=== PATIENT | female | born 1985 | race Caucasian/White ===

== ENCOUNTER 2020-09-12 00:44 | Outpatient (CLI) | payer BC, OTHER, SELFPAY ==
[2020-09-12 17:37] LABS: SARS-CoV-2 RNA PCR Negative
== END 2020-09-12 00:45 | disposition home or self-care (01) ==
LOC: ANHCOVIDDT 00:44
PROVIDERS: PCP Emergency Medicine; Visit Provider Obstetrics & Gynecology
DX: Z01.812 Encounter for preprocedural laboratory examination (principal); Z20.828 Contact with and (suspected) exposure to other viral communicable diseases
CPT/HCPCS: 87635; C9803; U0003

== ENCOUNTER 2020-09-15 00:53 | Day surgery (SDC) | payer BC, OTHER, SELFPAY ==
[2020-09-02 11:34] VITALS: BMI 24.1
[2020-09-15] VITALS (8 sets, daily range): BP systolic 113–126; BP diastolic 61–88; PULSE 50–90; RESP 10–16; TEMP 36.4–36.8; O2SAT 100
[2020-09-15] MEDS: ACETAMINOPHEN 500 MG TABLET 1000 MG PO (09:18)
[2020-09-15] MEDS: KETOROLAC 15 MG/ML VIAL (*BKC) IV PUSH (09:34)
[2020-09-15] MEDS: LACTATED RINGERS 1,000 ML 30 ML IV CONT ×2 (09:34→11:28)
--- NOTE | 2020-09-15 10:10 | WPDHPUPDATE1 ---
History and Physical Update Update Date/Time: 09/15/20 10:10 History and Physical has been reviewed, including an updated exam of the patient. There are NO changes in the patient's condition. Risks, benefits, and alternatives have been discussed and questions answered. Patient agrees to proceed with procedure.
--- NOTE | 2020-09-15 10:25 | WPDANESEPPF ---
Anes - Initial Pre Proc Eval Procedure: Operation Date: 09/15/20 11:30 Proposed Procedures p Laparoscopic Bilateral Tubal Sterilization with Cautery - Halley Bob MD s Hysteroscopy with Donna Ablation - Halley Bob MD Date/Time: 09/15/20 10:25 Surgeon: Halley Bob MD Pre Op Diagnosis: sterilization, excessive and frequent menstruation Patient Data Age: 35 Gender: F Height: 5 ft 5 in Weight: 64.8 kg Last Vital Signs Temp 98.2 F 09/15/20 09:34 Pulse 70 09/15/20 09:34 Resp 16 09/15/20 09:34 BP 113/61 09/15/20 09:34 Pulse Ox 100 09/15/20 09:34 Allergies Allergy/AdvReac Type Severity Reaction Status Date / Time No Known Allergies Allergy Verified 09/15/20 09:12 Home Medications Medication Instructions Recorded Confirmed Type L.acid-L.casei-B.bif-B.homero-FOS 1 cap PO DAILY 09/02/20 09/15/20 History [Probiotic Blend] levothyroxine 50 mcg PO DAILY 09/02/20 09/15/20 History multivitamin 1 tablet PO DAILY 09/02/20 09/15/20 History Patient hx anesthesia problems: none Family hx anesthesia problems: none PMFSH Past Medical History Medical History (Updated 09/15/20 @ 08:40 by Rickey Izaguirre MD) Anemia Hypothyroid Migraine Social History Social History Smoking status: Never smoker Spiritual care concerns: No Anes - Eval Final PreProcedure Day of Procedure 09/15/20 10:25 Patient weight: normal Heart: regular rate and rhythm Lungs: clear to auscultation Airway: Mallampati scale class II Neurological: alert and oriented Last oral intake: >/= 8 hours ASA classification: II Emergent: no Anesthetic plan: proceed Anesthesia type and monitoring: general ETT and standard monitoring Informed Consent: The patient's anesthetic plan and its attendant risks and benefits were discussed with the patient/family/POA. Questions were solicited and answers provided to the satisfaction of the patient/family/POA.
--- NOTE | 2020-09-15 10:32 | SUR.PREOP ---
Up to bathroom.
--- NOTE | 2020-09-15 10:32 | PM.IMHP ---
H&P: HPI History of Present Illness Date/Time: 09/15/20 10:32 Chief complaint: sterilization, excessive and frequent menstruation Narrative: Amy Dalton is a 35 year old female who presents for preoperative care. She has severe menorrhagia and unwanted fertility. We have agreed to perform laparoscopic BTL and endometrial ablation. She has no other complaints. Review of Systems Constitutional: Constitutional: Reports no additional constitutional complaints, Denies fatigue, Denies headache(s), Denies lethargy and Denies weakness Eyes: Eyes: Reports no additional eye complaints, Denies blurry vision and Denies photophobia ENT: Reports as per HPI, Denies headache(s) and Denies neck pain Cardiovascular: Cardiovascular: Denies chest pain, Denies diaphoresis, Denies leg edema, Denies palpitations and Denies dyspnea Respiratory: Respiratory: Denies hemoptysis, Denies dyspnea and Denies wheezing Gastrointestinal: Gastrointestinal: Denies abdominal pain, Denies melena, Denies bloating, Denies hematochezia, Denies nausea and Denies vomiting Genitourinary: Genitourinary: Reports no additional female genitourinary complaints Musculoskeletal: Musculoskeletal: Denies joint swelling, Denies neck pain, Denies numbness and Denies stiffness Neurologic: Denies Abnormal speech present, Denies confusion, Denies headache(s), Denies numbness and Denies weakness Psychiatric: Psychiatric: Denies anxiety, Denies confusion, Denies depression, Denies homicidal ideation and Denies suicidal ideation Endocrine: Endocrine: Denies fatigue and Denies palpitations Allergic/Immunologic: Allergic/Immunologic: Denies wheezing PMFSH Past Medical History Medical History (Updated 09/15/20 @ 10:36 by Halley Bob MD) Anemia Hypothyroid Migraine Social History Social History Smoking status: Never smoker Spiritual care concerns: No Meds Home Medications and Allergies Home Medications Medication Instructions Recorded Confirmed Type L.acid-L.casei-B.bif-B.homero-FOS 1 cap PO DAILY 09/02/20 09/15/20 History [Probiotic Blend] levothyroxine 50 mcg PO DAILY 09/02/20 09/15/20 History multivitamin 1 tablet PO DAILY 09/02/20 09/15/20 History Allergies Allergy/AdvReac Type Severity Reaction Status Date / Time No Known Allergies Allergy Verified 09/15/20 09:12 Vital Signs Vital Signs - 24 hr 09/15/20 09:34 Temperature 98.2 F Pulse Rate 70 Respiratory Rate 16 Blood Pressure 113/61 Pulse Oximetry 100 Exam Const: General: healthy appearing, comfortable and no acute distress; No confusion Orientation/consciousness: No confusion Eyes: Direct Ophthalmoscopy: No photophobia Resp: Auscultation: clear to auscultation bilaterally, no rales, no rhonchi and no wheezes Cardio: Rate: regular rate Heart sounds: no click, no murmurs and no rubs GI: Inspection: non-distended GI Palp: No abdominal tenderness Auscultation: normal bowel sounds Neuro: General: No confusion Speech: No Abnormal speech present Extrem: General: normal to inspection, no pedal edema and no calf tenderness Assessment and Plan Assessment and plan (1) Menorrhagia: Code(s): N92.0 - Excessive and frequent menstruation with regular cycle Status: Acute (2) Sterilization: Code(s): Z30.2 - Encounter for sterilization Status: Acute Assessment and Plan: To proceed with endometrial ablation and and laparoscopic BTL. She understands the risk, benefit and alternatives.
--- NOTE | 2020-09-15 11:36 | PM.PROC ---
Procedure Note - Detailed Date of procedure: 09/15/20 Pre-op diagnosis: sterilization, excessive and frequent menstruation Post-op diagnosis: same Procedure performed: Laparoscopic bilateral tubal ligation, Endometrial Ablation Description of procedure: Patient was taken the operating room. She has prepped draped in the dorsal lithotomy position after induction of general anesthesia. A 5 mm abdominal incision was made in left upper quadrant of the abdomen with scalpel. A 5 mm trocars inserted the intra-abdominal cavity under direct visualization of the scope. Pneumoperitoneum was achieved. A 5 mm periumbilical incision was made using a scalpel on the abdominal scan. A 5 mm trocar was inserted the intra-abdominal cavity under visualization of the scope. The fallopian tube was grasped with the bipolar cautery in the ampullary region. It was completely desiccated in a 1.5 cm area of the fallopian tube. This was performed in identical fashion on the contralateral side. The instruments were withdrawn. The pneumoperitoneum was reduced. The trocars were removed. The skin was closed with subcuticular 4 Monocryl. This incisions were covered with Dermabond. Our attention was then turned to the endometrial ablation portion of the procedure. A speculum was placed in the vagina. The cervix was grasped with a tenaculum. The cervix was dilated to approximately 8 mm with Pete dilators. The hysteroscope was inserted. And the below findings were noted. Measurements of the cervix were taken using the uterine sound and the hysteroscope. The intrauterine cavity measurements were entered into the hand piece of the device. The device was inserted the intrauterine cavity. The array was expanded. The balloon cuff was inflated. The uterus was airtight. The energy and safety cycles within initiated. They were completed under 3 minutes. The balloon cuff was collapsed, the array was collapsed, and the device was removed the uterine cavity. the hysteroscope was reinserted and the cavity was well desiccated, it was clearly observed. Hysteroscope was withdrawn. The tenaculum was removed. The speculum was removed. The patient tolerated the procedure well. She was taken to recover room in stable condition. Anesthesia: GETA Surgeon: Halley Bob MD Estimated blood loss (mL): 10 Drains: No Packing: No Pathology: none sent Complications: No immediate complications Condition: stable Disposition: PACU Findings: Normal female pelvic anatomy.
[2020-09-15] MEDS: fentaNYL CITRATE INJ (*CRX) 100 MCG/2 ML VIAL 25 MCG IV PUSH (11:50)
== END 2020-09-15 13:05 | disposition home or self-care (01) ==
PROVIDERS: PCP Emergency Medicine; Visit Provider Obstetrics & Gynecology
PROC: (CPT 58671; principal; 2020-09-15 11:30)
PROC: 0U5B8ZZ Destruction of Endometrium, Via Natural or Artificial Opening Endoscopic (ICD-10-PCS; CPT 58563; 2020-09-15 11:30)
DX: Z30.2 Encounter for sterilization (principal); N92.0 Excessive and frequent menstruation with regular cycle; D64.9 Anemia, unspecified; E03.9 Hypothyroidism, unspecified
CPT/HCPCS: 58563; 58670; A9270; J1100; J1200; J1885; J2250; J2405; J2704; J3010; J7030; J7120

== ENCOUNTER 2021-12-10 07:41 | Outpatient (CLI) | payer BC, OTHER, SELFPAY ==
[2021-12-10 08:12] LABS: Hematocrit 41.7 % (37.0-47.0); Hemoglobin 13.8 g/dL (12.0-15.0)
== END 2021-12-10 07:42 | disposition home or self-care (01) ==
PROVIDERS: Anesthesiology; PCP Emergency Medicine; Visit Provider Obstetrics & Gynecology
DX: Z01.812 Encounter for preprocedural laboratory examination (principal); N92.0 Excessive and frequent menstruation with regular cycle
CPT/HCPCS: 36415; 85014; 85018; 86850; 86900; 86901

== ENCOUNTER 2021-12-15 00:58 | Day surgery (SDC) | payer BC, OTHER, SELFPAY ==
[2021-12-08 14:33] VITALS: BMI 28.3
--- NOTE | 2021-12-08 14:35 | SUR.PREOP ---
Report to the Outpatient Waiting Room, entrance under the green pavilion located off [facility], at time 0600_on date 12/15/21. OR Time: ____0730____. - You will be asked a series of questions to screen for COVID 19 for your protection. - A mask is required within the hospital. Preoperative COVID Testing Requirements: No COVID Test needed if: (proof is required; if not received patient will have Rapid Test prior to entry) - Patient has received COVID Vaccine at least 14 days prior to procedure date or COVID Test needed if above criteria is not met If not COVID vaccinated a COVID test must be conducted within 72 hours of surgery and patient is asked to isolate self from time of testing until procedure. You will go to the [facility] Testing [facility] for your COVID testing. The [facility] is located at the corner of [address] [facility]. You will only be called if COVID results are positive and your surgeon may reschedule your elective surgery date. Patients may have clear liquids (water, carbonated beverages, clear teas, apple juice) until 3 hours prior to surgery with a maximum of 20 ounces. - No food from midnight until time of surgery - Infants may have breast milk until 4 hours before surgery, formula 6 hours prior to surgery. - Children will be allowed to drink immediately following surgery. If applicable, please bring a bottle or sippy cup to assist with drinking. Juice, water, soda, and popsicles are readily available. For infants on formula, please bring formula the day of surgery. Pacifiers are allowed. Take the following medications with a SIP of water the morning of surgery: __levothyroxine Medications to discontinue per physician ___vitamin supplements Date to take last dose_12/11/21 Please no make-up, nail niuean, hairspray, perfume, deodorant, or body powder the day of surgery. No jewelry (including any body piercings) or valuables the day of surgery, leave them at home. Please take a shower or bath the night before, or the morning of, surgery with an antibacterial soap. Wear comfortable, loose fitting clothing. Children are encouraged to wear pajamas. - Jewelry must be removed prior to entering the operating room. Rings and piercings that are not removed may be cut off. - The hospital will not accept responsibility for valuables. - Please leave all valuables, including medications, at home the day of surgery. If you are going home after surgery, a licensed rolloff truck driver must drive you home. - NO public transportation without another adult. - We recommend that an adult stay with you for 24 hours following discharge. - We also recommend that you do not drive, make important decision, drink alcoholic beverages, or take any drugs that were not prescribed by your health care provider for at least 24 hours after your discharge time. For Pediatric surgeries, we recommend two adults accompany the child home (only one inside the building at this time). Follow any additional instructions given to you from your surgeon. Telephone instructions given to mana pettit_and asked if any additional questions and then verbalized understanding. Patient advised to call surgeon office or pre surgery nurse liaison [phone] if any additional questions.
[2021-12-15] VITALS (10 sets, daily range): BP systolic 104–131; BP diastolic 57–78; PULSE 57–82; RESP 12–18; TEMP 36.2–37.2; O2SAT 97–100
[2021-12-15] MEDS: ACETAMINOPHEN 500 MG TABLET 1000 MG PO (06:20)
[2021-12-15] MEDS: KETOROLAC 15 MG/ML VIAL (*BKC) IV PUSH (06:36)
--- NOTE | 2021-12-15 07:08 | WPDANESEPPF ---
Anes - Initial Pre Proc Eval Procedure: Operation Date: 12/15/21 07:30 Proposed Procedures p Total Laparoscopic Hysterectomy with Bilateral Salpingectomy - Halley Bob MD Date/Time: 12/15/21 07:08 Surgeon: Halley Bob MD Pre Op Diagnosis: menorrhaghia Patient Data Age: 36 Gender: F Height: 1.65 m Weight: 78.7 kg Last Vital Signs Temp 36.6 C 12/15/21 06:07 Pulse 71 12/15/21 06:07 Resp 16 12/15/21 06:07 BP 131/73 12/15/21 06:07 Pulse Ox 99 12/15/21 06:07 Allergies Allergy/AdvReac Type Severity Reaction Status Date / Time No Known Allergies Allergy Verified 12/15/21 06:04 Home Medications Medication Instructions Recorded Confirmed Type Probiotic Blend 1 cap PO DAILY 09/02/20 12/15/21 History levothyroxine 50 mcg PO DAILY 09/02/20 12/15/21 History multivitamin 1 tablet PO DAILY 09/02/20 12/15/21 History cholecalciferol (vitamin D3) 25 mcg PO DAILY 12/08/21 12/15/21 History [Vitamin D3] ferrous sulfate [iron] 325 mg PO DAILY 12/08/21 12/15/21 History Patient hx anesthesia problems: post op nausea/vomiting Family hx anesthesia problems: post op nausea/vomiting Results Review: All pre-operative results and documents have been reviewed as part of the pre-operative evaluation. [facility] Past Medical History Medical History Anemia Hypothyroid Migraine Social History Social History Smoking status: Never smoker Tobacco type: cigarettes Smoking end date: 10/27/08 Additional smoking assessment comments: 1ppd cigarettes x 12years Living arrangements: with family Spiritual care concerns: No Anes - Eval Final PreProcedure Day of Procedure 12/15/21 07:08 Patient weight: overweight Heart: regular rate and rhythm Lungs: clear to auscultation Airway: Mallampati scale class 1 Neurological: alert and oriented Last oral intake: >/= 8 hours ASA classification: II Emergent: no Anesthetic plan: proceed Anesthesia type and monitoring: general ETT and standard monitoring Results Review: All pre-operative results and documents have been reviewed as part of the pre-operative evaluation. Informed Consent: The patient's anesthetic plan and its attendant risks and benefits were discussed with the patient/family/POA. Questions were solicited and answers provided to the satisfaction of the patient/family/POA.
--- NOTE | 2021-12-15 07:09 | WPDHPUPDATE1 ---
History and Physical Update Update Date/Time: 12/15/21 07:09 History and Physical has been reviewed, including an updated exam of the patient. There are NO changes in the patient's condition. Risks, benefits, and alternatives have been discussed and questions answered. Patient agrees to proceed with procedure.
[2021-12-15] MEDS: FAMOTIDINE 20 MG/2 ML VIAL IV PUSH (07:13)
[2021-12-15] MEDS: LACTATED RINGERS 1,000 ML 30 ML IV CONT ×2 (07:13→09:00)
[2021-12-15] MEDS: ONDANSETRON INJ 4 MG/2 ML VIAL IV PUSH (07:14)
[2021-12-15] MEDS: SCOPOLAMINE 1.5 MG PATCH TRANSDERM (07:14)
[2021-12-15] MEDS: ceFAZolin 2 GM/D5W 50 ML 2 GM/50 ML BAG IVPB (07:25)
--- NOTE | 2021-12-15 08:51 | P.OP_ITS ---
Procedure Note - Detailed Date of Procedure 12/15/21 Pre-op Diagnosis menorrhaghia Post-op Diagnosis same Procedure Performed Total laparoscopic hysterectomy and bilateral salpingectomy. Surgeon Halley Bob MD Anesthesia general Indications Severe menometrorrhagia Findings Moderate sized uterus, normal appearing ovaries and normal-appearing ligated tubes. Description of Procedure This patient was taken to the operating room. She was prepped and draped in the dorsal lithotomy position after induction of general anesthesia. The uterine manipulator and Denisha cup were placed. This was done with a speculum and tenaculum. The speculum was placed. The cervix was grasped with a tenaculum. The stay sutures were placed at 3 and 9:00 a.m.. The stay sutures of 0 Vicryl were brought through the appropriately sized Denisha cup. The tip of the CLIFFORD manipulator was placed in the intrauterine cavity. The cup was slid into place around the cervix and into the fornices. It was locked into place. The sutures were then wrapped around the handle and tied under tension. A 5 mm skin incision was made in the left upper quadrant the abdomen. A 5 mm trocar was inserted into the intrauterine cavity under direct visualization of the scope. Pneumoperitoneum was achieved. A left lower quadrant 11 mm incision was made with scalpel. An 11 mm trocar was inserted into the anterior abdominal cavity under direct visualization the scope. A 5 mm infraumbilical incision was made with a scalpel and a 5 mm trocar was inserted the intra-abdominal cavity under direct visualization of the scope. Bilateral ureteral lysis was performed. This was done from the pelvic brim down to the uterine artery. This was done with careful dissection using sharp and blunt dissection. The fallopian tubes were removed bilaterally. The mesosalpinx around the fallopian tubes were cauterized transected with LigaSure cautery. This was done in a bilateral fashion from the ovary to the uterine cornua. The fallopian tube was transected at the uterine cornu and amputated. The tube was taken out the left lower quadrant trocar site. In a stepwise fashion along the lateral aspects of the uterus the round ligament and broad lig aments were cauterized transected down to the level of the uterine arteries. A bladder flap was created in the bladder was moved distally to the end of the cervix and over the Denisha cup. The bilateral uterine arteries were cauterized and transected. Colpotomy was then performed. In a circumferential fashion the vagina was transected using unipolar cautery. The incision was made down on the Denisha cup. The uterus and cervix were taken out through the vagina. A pneumo occluder was placed in the vagina. The vaginal cuff was closed with a 0 V lock suture in a running fashion. The pelvis was irrigated with copious amounts antibiotic irrigation. The ureters were again examined and found to be intact and flowing freely under the uterine arteries into the bladder. The bladder was intact. It was examined directly. The vagina was irrigated with Betadine solution after removal of the Pneumo occluder. The patient was taken to recovery room. She was stable condition. Sponge lap and needle counts were correct x2. Estimated Blood Loss 75 Drains Yes Packing No Pathology yes Complications No immediate complications Condition stable Disposition floor
[2021-12-15] MEDS: fentaNYL CITRATE INJ (*CRX) 100 MCG/2 ML VIAL 25 MCG IV PUSH ×2 (10:10→10:13)
[2021-12-15] MEDS: DEXTROSE 5%/0.45% SOD CHL 1,000 ML 125 ML IV CONT (10:30)
--- NOTE | 2021-12-15 10:30 | PC.NURSE ---
PT arrived on unit via bed and taken to room 289. Pt's arrived shortly afterward. PT introductions made and plan of care discussed per post op real time analyst surgery, pain management, and daily care activities. PT alert and awake and oriented to room and surroundings. PT received such instructions this shift via one to one discussion and demonstrations. PT sole recipient of such instructions and no barriers to learning identified at this time. PT verbalized understanding of such care.
[2021-12-15] MEDS: KETOROLAC 30 MG/ML VIAL (*BKC) IV PUSH (12:42)
[2021-12-15] MEDS: ACETAMINOPHEN 500 MG TABLET 1000 MG (12:43)
[2021-12-15] MEDS: IBUPROFEN 600 MG TABLET PO (19:15)
--- NOTE | 2021-12-15 19:40 | PC.NURSE ---
1899 - pt. requested to go home riley, call to -- orders for discharge and call prescription for Ibuprofen 600mg 1 po q6h prn, #20 0 - call to [facility] in [place] for Ibuprofen 1929 - printed discharge instructions given to pt and discussed, questions answered
== END 2021-12-15 20:10 | disposition home or self-care (01) ==
LOC: ANHSURGERY 09:43 → ANHOB2 10:24
PROVIDERS: PCP Emergency Medicine; Visit Provider Obstetrics & Gynecology
PROC: 0UT9FZZ Resection of Uterus, Via Natural or Artificial Opening With Percutaneous Endoscopic Assistance (ICD-10-PCS; CPT 58571; principal; 2021-12-15 07:30)
DX: N92.0 Excessive and frequent menstruation with regular cycle (principal); N80.0 Endometriosis of uterus; D64.9 Anemia, unspecified; E03.9 Hypothyroidism, unspecified; F17.210 Nicotine dependence, cigarettes, uncomplicated
CPT/HCPCS: 58571; 88307; 99199; A9270; J0330; J0690; J1100; J1885; J2250; J2270; J2405; J2704; J3010; J7030; J7120

== ENCOUNTER 2022-02-28 12:12 | Emergency (ER) | payer BC, OTHER, SELFPAY ==
--- NOTE | ~2022-02-28 | CT_ITS ---
EXAMINATION: CT abdomen pelvis w con DATE: 02/28/2022 17:04 INDICATION: Lower abdominal pain. TECHNIQUE: Computed tomography (CT) of the abdomen and pelvis was performed without intravenous contr ast. Automated exposure control and iterative reconstruction technique were employed. The dose-length product was 442.05 mGy-cm. COMPARISON: None FINDINGS: Lower thorax: Bilateral breast augmentation.. Liver: Normal. Biliary/Gallbladder: No bile duct dilation. Normal gallbladder. Spleen: No mass. No splenomegaly. Pancreas: No mass or duct dilation. Adrenals:No mass. Kidneys: No mass, stone, or hydronephrosis. GI tract: No dilation or wall thickening. No diverticulosis. Normal appendix. Mesentery/Peritoneum: No ascites or mass. Retroperitoneum: No mass. Pelvis: Urinary bladder is unremarkable. Pelvic organs are within normal limits. Bones/Soft Tissues: Small fat-containing of local hernia.No acute osseous finding. Additional Findings: None. IMPRESSION: No acute abdominopelvic process detected. Reviewed, dictated and finalized at location K.
[2022-02-28 13:06] VITALS: BP 149/89; PULSE 87; RESP 16; TEMP 36.2; O2SAT 100
[2022-02-28 13:18] LABS: Add Urine Microscopic? YES; Appearance Urine Clear (Clear); Bilirubin Urine Negative (Negative); Blood Urine 2+ (Negative); Color Urine Straw (Yellow); Glucose Urine UA Negative (Negative); Ketones Urine Negative (Negative); Leukocyte Esterase Ur Negative LEU/UL (Negative); Nitrate Urine Negative (Negative); Protein Urine Negative (Negative); RBC Urine 0-2 /hpf (0-2); Specific Grav Ur 1.005 (1.001-1.035); Squamous Epithelial Cell Urine Occasional /hpf (Few); Urobilinogen Urine Negative mg/dL (<2.0); WBC Urine 0-3 /hpf
[2022-02-28 13:29] LABS: Basophils Absolute Auto 0.1 K/mm3 (0.0-0.1); Eosinophils Absolute Auto 0.1 K/mm3 (0-0.3); Eosinophils Percent Auto 1.5 % (0-4.4); Hematocrit 41.4 % (37.0-47.0); Immature Granulocyte Absolute 0.03 K/mm3 (0.00-0.031); Immature Granulocyte Percent A 0.5 % (0-0.5); Lymphocytes Absolute Auto 1.31 K/mm3 (0.9-3.2); Lymphocytes Percent Auto 21.3 % (18.3-44.2); Mean Corpuscular HGB Conc 33.8 g/dl (32-36); Mean Corpuscular Hemoglobin 30.6 pg (26-34); Mean Corpuscular Volume 90.6 fl (80-100); Monocytes Absolute Auto 0.4 K/mm3 (0.1-0.6); Monocytes Percent Auto 6.2 % (2.6-8.5); Neutrophils Absolute Auto 4.3 K/mm3 (1.3-6.7); Neutrophils Percent Auto 69.5 % (45.5-73.1); Platelet Count Result 287 k/mm3 (150-375); Red Blood Count 4.57 M/mm3 (4.2-5.4); Red Cell Distribution Width 12.6 % (11.5-14.5); White Blood Count 6.2 K/mm3 (4.5-10.0)
[2022-02-28 13:41] LABS: Alanine Aminotransferase 19 U/L (4-35); Albumin Level 4.7 g/dL (3.5-5.1); Alkaline Phosphatase 66 U/L (38-126); Anion Gap 8 mmol/L (8-16); Aspartate Amino Transferase 23 U/L (14-36); Bilirubin,Total 0.2 mg/dL (0.2-1.3); Blood Urea Nitrogen 14 mg/dL (7-17); Calcium 9.1 mg/dL (8.4-10.2); Carbon Dioxide 26 mmol/L (22-30); Chloride 106 mmol/L (98-107); Estimated CRCL calculation 97 ml/min; Estimated Glomerular Filt Rate > 60; Glucose 94 mg/dL (65-110); Lipase 127 U/L (23-300); Potassium 3.8 mmol/L (3.4-5.0); Sodium 140 mmol/L (137-145)
--- NOTE | 2022-02-28 14:48 | ED.ABDPAIN ---
HPI - Abdominal Pain General Chief Complaint: Abdominal Pain Stated Complaint: abdominal pain Time Seen by Provider: 02/28/22 14:30 Source: patient and RN notes reviewed Mode of arrival: ambulatory Limitations: no limitations History of Present Illness HPI narrative: This is a 36 year old female who presents for evaluation of lower abdominal pain. She developed vaginal spotting and lower abdominal pain last Monday. She reports her pain has been constant. She also noticed some burning pain with urination, and she is now reports yellowish vaginal discharge. She is 2 months postop laparoscopic hysterectomy. She tried to call Dr. Bob today but she states no one is in office today. She is concerned about a pelvic infection and constipation. Prior to her surgery, she reports having a bowel movement every 3 days. She is concerned that she has been unable to have good consistent BMs in 2 months. She states 2 days ago she had loose stools after eating too many sugarfree candies. She is also on keto diet for past 2 weeks. She denies fever, chills, nausea, vomiting. Related Data Home Medications Medication Instructions Recorded Confirmed Probiotic Blend 1 cap PO DAILY 09/02/20 12/15/21 levothyroxine 50 mcg PO DAILY 09/02/20 12/15/21 multivitamin 1 tablet PO DAILY 09/02/20 12/15/21 cholecalciferol (vitamin D3) 25 mcg PO DAILY 12/08/21 12/15/21 [Vitamin D3] ferrous sulfate [iron] 325 mg PO DAILY 12/08/21 12/15/21 Allergies Allergy/AdvReac Type Severity Reaction Status Date / Time No Known Allergies Allergy Verified 02/28/22 13:08 Review of Systems Review of Systems: All systems reviewed & are unremarkable except as noted in HPI and below Constitutional: Constitutional: Denies chills and Denies fever(s) ENT: Denies nasal congestion Cardiovascular: Cardiovascular: Denies chest pain Respiratory: Respiratory: Denies cough and Denies dyspnea Gastrointestinal: Gastrointestinal: Reports abdominal pain, Reports bloating, Reports constipation and Denies nausea Genitourinary: Genitourinary: Denies nocturia and Denies flank pain Musculoskeletal: Musculoskeletal: Reports back pain [facility] Past Medical History Medical History (Updated 02/28/22 @ 17:37 by Grecia Thompson MD) Anemia Hypothyroid Migraine Surgical History Surgical History (Updated 02/28/22 @ 14:52 by Grecia Thompson MD) History of hysterectomy Social History Social History Smoking status: Never smoker Tobacco type: cigarettes Smoking end date: 10/27/08 Additional smoking assessment comments: 1ppd cigarettes x 12years Spiritual care concerns: No Exam Const: General: no acute distress and alert Orientation/consciousness: patient oriented x3 Eyes: EOM: EOMs intact bilaterally Chest: Chest palpation & inspection: normal inspection of the chest Resp: Effort & Inspection: normal respiratory effort and no retractions Auscultation: clear to auscultation bilaterally Cardio: Rate: regular rate Rhythm: regular rhythm Heart sounds: no murmurs GI: GI Palp: Yes Soft to palpation, Yes Tenderness to palpation present (GI) (bilateral lower quadrant, suprapubi c), No Guarding due to palpation present (GI) and No Rigid due to palpation Auscultation: normal bowel sounds : General: Yes no CVA tenderness Speculum Exam - Vagina: abnormal vaginal discharge yellow (with small specks of blood) Bimanual Exam- Adnexa, other: tender Skin: General skin exam: normal color Neuro: General: patient oriented x3, moves all extremities and CN's II-XI intact bilaterally Psych: Mental Status: mental status grossly normal Affect: normal affect Course Reevaluation(s) Reevaluation #1: I discussed case with Dr. Bob. He agrees with placing patient on flagyl and doxycycline. He will follow up with patient in clinic Date: 02/28/22 Time: 17:28 Vital Signs Vital signs: Vital S
[2022-02-28] MEDS: KETOROLAC 30 MG/ML VIAL (*BKC) IV PUSH (16:45)
[2022-02-28 17:57] VITALS: BP 136/74; PULSE 84; RESP 16; O2SAT 98
== END 2022-02-28 18:00 | disposition home or self-care (01) ==
PROVIDERS: Emergency Medicine; Emergency Provider General Practice
DX: N76.0 Acute vaginitis (principal); E03.9 Hypothyroidism, unspecified; Z86.2 Personal history of diseases of the blood and blood-forming organs and certain disorders involving the immune mechanism; Z86.69 Personal history of other diseases of the nervous system and sense organs; Z90.710 Acquired absence of both cervix and uterus; Z87.891 Personal history of nicotine dependence
CPT/HCPCS: 36415; 74177; 80053; 81001; 81025; 83690; 85025; 87070; 87077; 87491; 87591; 87808; 96365; 96375; 99284; J0696; J1885; Q9967

== ENCOUNTER 2022-04-26 00:08 | Day surgery (SDC) | payer BC, OTHER, SELFPAY ==
[2022-04-19 10:29] VITALS: BMI 27.5
--- NOTE | 2022-04-19 10:34 | PC.NURSE ---
Report to the Outpatient Waiting Room, entrance under the green pavilion located off [facility], at time ____06___ on date 04/26/22 . OR Time: __729 . - You and your visitor will be asked a series of questions to screen for COVID 19 for your protection. - Only one visitor is allowed at this time. - The patient visitor is requested to leave or wait in car when not with patient. - A mask is required within the hospital. Patients may have clear liquids (water, carbonated beverages, clear teas, apple juice) until 3 hours prior to surgery with a maximum of 20 ounces. - No food from midnight until time of surgery - Infants may have breast milk until 4 hours before surgery, formula 6 hours prior to surgery. - Children will be allowed to drink immediately following surgery. If applicable, please bring a bottle or sippy cup to assist with drinking. Juice, water, soda, and popsicles are readily available. For infants on formula, please bring formula the day of surgery. Pacifiers are allowed. Take the following medications with a SIP of water the morning of surgery: LEVOTHYROXINE Medications to discontinue per physician VITAMINS Date to take last dose_04/22/22 Please no make-up, nail azerbaijani, hairspray, perfume, deodorant, or body powder the day of surgery. No jewelry (including any body piercings) or valuables the day of surgery, leave them at home. Please take a shower or bath the night before, or the morning of, surgery with an antibacterial soap. Wear comfortable, loose fitting clothing. Children are encouraged to wear pajamas. - Jewelry must be removed prior to entering the operating room. Rings and piercings that are not removed may be cut off. - The hospital will not accept responsibility for valuables. - Please leave all valuables, including medications, at home the day of surgery. If you are going home after surgery, a licensed emergency medical technician/driver must drive you home. - NO public transportation without another adult. - We recommend that an adult stay with you for 24 hours following discharge. - We also recommend that you do not drive, make important decision, drink alcoholic beverages, or take any drugs that were not prescribed by your health care provider for at least 24 hours after your discharge time. For Pediatric surgeries, we recommend two adults accompany the child home (only one inside the building at this time). Follow any additional instructions given to you from your surgeon. If you or anyone in your household have experienced Covid symptoms in the past week, please notify your surgeon or the nurse liaison at the phone number below for possible testing. Telephone instructions given to _PATIENT and asked if any additional questions and then verbalized understanding. Patient advised to call surgeon office or pre surgery nurse liaison [phone] if any additional questions.
[2022-04-26] VITALS (10 sets, daily range): BP systolic 113–127; BP diastolic 63–81; PULSE 62–92; RESP 12–17; TEMP 36.4–36.7; O2SAT 99–100
[2022-04-26] MEDS: LACTATED RINGERS 1,000 ML 30 ML IV CONT ×2 (06:30→09:02)
[2022-04-26] MEDS: ACETAMINOPHEN 500 MG TABLET 1000 MG PO (06:32)
[2022-04-26] MEDS: KETOROLAC 15 MG/ML VIAL (*BKC) IV PUSH ×2 (06:32→11:04)
--- NOTE | 2022-04-26 06:40 | P.PNAN_ITS ---
Anes - Initial Pre Proc Eval Procedure: Operation Date: 04/26/22 07:30 Proposed Procedures p Laparoscopic Fulguration, Excision of Lesions of The Ovary, Pelvic Viscera, Peritoneal Surface - Halley Bob MD Date/Time: 04/26/22 06:40 Surgeon: Halley Bob MD Pre Op Diagnosis: open wound of vagina with complications Patient Data Age: 36 Gender: F Height: 1.65 m Weight: 79 kg Last Vital Signs Temp 36.7 C 04/26/22 06:15 Pulse 66 04/26/22 06:15 Resp 16 04/26/22 06:15 BP 126/64 04/26/22 06:15 Pulse Ox 100 04/26/22 06:15 O2 Del Method Room Air 04/26/22 06:15 Allergies Allergy/AdvReac Type Severity Reaction Status Date / Time No Known Allergies Allergy Verified 04/26/22 06:17 Home Medications Medication Instructions Recorded Confirmed Type L.acidophil-L.casei-B.bifid-B.longum-FOS 1 cap PO DAILY 09/02/20 04/26/22 History 2 billion cell-50 mg capsule (Probiotic Blend) levothyroxine 50 mcg tablet 50 mcg PO DAILY 09/02/20 04/26/22 History multivitamin 1 tablet PO DAILY 09/02/20 04/26/22 History cholecalciferol (vitamin D3) 25 25 mcg PO DAILY 12/08/21 04/26/22 History mcg (1,000 unit) capsule (Vitamin D3) ferrous sulfate 325 mg (65 mg 325 mg PO DAILY 12/08/21 04/26/22 History iron) tablet (iron) Patient hx anesthesia problems: none Family hx anesthesia problems: none Results Review: All pre-operative results and documents have been reviewed as part of the pre- operative evaluation. [facility] Past Medical History Medical History (Updated 04/26/22 @ 06:40 by Ryan Meyer MD) Anemia Hypothyroid Migraine Overweight Surgical History Surgical History (Updated 04/26/22 @ 06:41 by Ryan Meyer MD) H/O breast augmentation History of hysterectomy S/P wisdom tooth extraction Social History Social History Smoking packs per day: 0.5 Smoking cigarettes per day: 10.0 Years smoked: 12 Smoking pack-years: 6.00 Smoking status: Former smoker Tobacco type: cigarettes Smoking end date: 10/27/08 Additional smoking assessment comments: 1ppd cigarettes x 12years Alcohol intake: current Alcohol use details: RARELY Substance use: never Last use: 2007 Living arrangements: with family Spiritual care concerns: No Anes - Eval Final PreProcedure Day of Procedure 04/26/22 06:40 Patient weight: overweight Heart: regular rate and rhythm Lungs: clear to auscultation Airway: Mallampati scale class 1 Neurological: alert and oriented ASA classification: II Emergent: no Anesthetic plan: proceed Anesthesia type and monitoring: general ETT and standard monitoring Results Review: All pre-operative results and documents have been reviewed as part of the pre- operative evaluation. Informed Consent: The patient's anesthetic plan and its attendant risks and benefits were discussed with the patient/family/POA. Questions were solicited and answers provided to the satisfaction of the patient/family/POA.
[2022-04-26] MEDS: SCOPOLAMINE 1.5 MG PATCH TRANSDERM (06:48)
--- NOTE | 2022-04-26 07:09 | WPDHPUPDATE1 ---
History and Physical Update Update Date/Time: 04/26/22 07:09 History and Physical has been reviewed, including an updated exam of the patient. There are NO changes in the patient's condition. Risks, benefits, and alternatives have been discussed and questions answered. Patient agrees to proceed with procedure.
--- NOTE | 2022-04-26 09:22 | P.OP_ITS ---
Procedure Note - Detailed Date of Procedure 04/26/22 Pre-op Diagnosis open wound of vagina with complications Post-op Diagnosis Same Procedure Performed Revision of vaginal cuff Surgeon Halley Bob MD Anesthesia General Indications Pelvic pain Findings Adhesions between the rectum and the vaginal cuff, adhesions between the sigmoid colon and the left adnexa. Inflammation and granulation tissue at the vaginal cuff and the surrounding area. Description of Procedure The patient was taken to the operating room. She was prepped and draped in the dorsal lithotomy position after induction general anesthesia. A 5 mm incision was made with a scalpel on the abdominal skin in the left upper quadrant of the abdomen. A 5 mm trocar was inserted into the intra-abdominal cavity under direct visualization the scope. In the same fashion a 11 mm left lower quadrant trocar was inserted and a 11 mm infraumbilical trocar was inserted. Adhesiolysis was performed between the rectum, colon and the lower pelvis and va ginal cuff. This was done with sharp and blunt dissection. Adhesions were mostly thin but at the vaginal cuff there were some dense adhesions. The vaginal cuff was then lightly open after adhesiolysis. The remainder of the cuff could be opened easily with manipulation. The edges were freshened by excising the edges was scissors. The vaginal cuff was then closed with a 0 V lock suture. The pelvis was irrigated. Large piece of Interceed was placed over the vaginal cuff and the surrounding area. The pneumoperitoneum was reduced. The trocars were removed. Skin was closed with subcuticular 4 micro. The patient's incisions were covered with Dermabond. She was taken recovery room in stable condition. Sponge lap and needle counts were correct x2. Estimated Blood Loss 25 Pathology Yes (Vaginal cuff inflammation and granulation tissue.) Complications No immediate complications Condition Stable Disposition Same day
[2022-04-26] MEDS: fentaNYL CITRATE INJ (*CRX) 100 MCG/2 ML VIAL 25 MCG IV PUSH ×4 (09:31→09:58)
[2022-04-26] MEDS: diphenhydrAMINE HCl INJ 50 MG/ML VIAL 25 MG IV PUSH (11:04)
== END 2022-04-26 11:35 | disposition home or self-care (01) ==
PROVIDERS: Visit Provider Obstetrics & Gynecology
PROC: (CPT 49320; principal; 2022-04-26 07:30)
DX: S31.40XA Unspecified open wound of vagina and vulva, initial encounter (principal); N99.2 Postprocedural adhesions of vagina; Z90.710 Acquired absence of both cervix and uterus; X58.XXXA Exposure to other specified factors, initial encounter; D64.9 Anemia, unspecified; E03.9 Hypothyroidism, unspecified; Z87.891 Personal history of nicotine dependence
CPT/HCPCS: 58578; 58660; 88305; A9270; J1100; J1200; J1885; J2250; J2405; J2704; J3010; J7030; J7120

== ENCOUNTER → 2022-11-23 16:51 | Outpatient (CLI) | payer BC, OTHER, SELFPAY ==
--- NOTE | ~2022-11-23 | MR_ITS ---
MRI of the lumbar spine Clinical History: Back pain Technique: Axial T2-weighted images, and sagittal T1-weighted, T2-weighted, and T2 fat-sat images wer e acquired. Findings: There is no fracture or subluxation of the lumbar spine. Vertebral bodies maintain normal h eight and alignment. No focal bone marrow signal abnormality seen. At L1-L2, L2-L3, there is no disc bulge or herniation. No spinal canal stenosis or neural foraminal n arrowing at these levels. At L3-L4, there is no disc bulge or herniation. There is facet arthropathy. No spinal canal stenosis or neural foraminal narrowing. At L4-L5, there is minimal disc desiccation with tiny annular tear. No spinal canal stenosis or neura l foraminal narrowing. At L5-S1, there is tiny annular fissure. No disc bulge or herniation evident. There is no spinal marybel l stenosis or neural foraminal narrowing. Paravertebral soft tissues are unremarkable. Impression: Minimal spondylitic changes, as detailed above. Reviewed, dictated and finalized at [facility]. H MARKER Impression: Minimal spondylitic changes, as detailed above.
== END ==
PROVIDERS: PCP Student in an Organized Health Care Education/Training Program; Visit Provider Chiropractor Rehabilitation
DX: M47.26 Other spondylosis with radiculopathy, lumbar region (principal)
CPT/HCPCS: 72148

== ENCOUNTER 2023-08-03 08:43 | Emergency (ER) | payer BC, SELFPAY ==
[2023-08-03 09:04] VITALS: BP 114/68; PULSE 81; RESP 18; TEMP 36.4; O2SAT 100
--- NOTE | 2023-08-03 09:08 | ED.URI ---
HPI - URI/Sore Throat General Chief Complaint: Upper Respiratory Infection Stated Complaint: fever,sorethroat Time Seen by Provider: 08/03/23 09:11 History of Present Illness HPI Narrative: 37 y/o female presented for c/o headache, sore throat, body aches, sinus pressure/congestion, fever/chills. Onset 2 days ago. Started with high heart rate, then developed body aches and fever up to 101.4. Taking zinc, ibuprofen, sinus medication for symptoms. Endorses sick contacts with unknown illnesses. Denies sob, wheezing, n/v/d. Related Data Home Medications Medication Instructions Recorded Confirmed L.acidophil-L.casei-B.bifid-B.longum-FOS 1 cap PO DAILY 09/02/20 08/03/23 2 billion cell-50 mg capsule (Probiotic Blend) levothyroxine 50 mcg tablet 50 mcg PO DAILY 09/02/20 08/03/23 multivitamin 1 tablet PO DAILY 09/02/20 08/03/23 cholecalciferol (vitamin D3) 25 25 mcg PO DAILY 12/08/21 08/03/23 mcg (1,000 unit) capsule (Vitamin D3) ferrous sulfate 325 mg (65 mg 325 mg PO DAILY 12/08/21 08/03/23 iron) tablet (iron) diclofenac sodium 50 mg 50 mg PO DAILY 08/03/23 08/03/23 tablet,delayed release pantoprazole 20 mg tablet,delayed 20 mg PO DAILY 08/03/23 08/03/23 release Allergies Allergy/AdvReac Type Severity Reaction Status Date / Time No Known Allergies Allergy Verified 08/03/23 09:26 Review of Systems Review of Systems: CONSTITUTIONAL: reports body aches, fever, chills EYES: Denies visual changes, redness, or discharge. ENT: Reports rhinorrhea, congestion, sore throat CARDIOVASCULAR: Denies chest pain, palpitations, or edema. RESPIRATORY: Denies dyspnea. GASTROINTESTINAL: Denies abdominal pain, nausea, vomiting, or diarrhea. SKIN: Denies rash, itching, or wounds. MUSCULOSKELETAL: Denies back pain, joint pain NEUROLOGIC: Reports headache PMFSH Past Medical History Medical History (Updated 08/03/23 @ 09:38 by Sharon Dan, MIRROR MAKER) Anemia Hypothyroid Migraine Overweight Surgical History Surgical History (Updated 08/03/23 @ 09:27 by Sharon Dan APRN) H/O breast augmentation History of hysterectomy Hx of tonsillectomy S/P wisdom tooth extraction Social History Social History Smoking packs per day: 0.5 Smoking cigarettes per day: 10.0 Years smoked: 12 Smoking pack-years: 6.00 Smoking status: Former smoker Tobacco type: cigarettes Smoking end date: 10/27/08 Additional smoking assessment comments: 1ppd cigarettes x 12years Alcohol intake: current Alcohol use details: RARELY Substance use: never Last use: 2007 Living arrangements: with family Spiritual care concerns: No Exam Narrative: GENERAL: mildly Ill-appearing, no acute distress. EYES: conjunctivae clear ENT: Mucous membranes moist. TMs pearly velasquez with normal light reflex bilaterally; no tragal tenderness. Oropharynx erythematous without lesions. Tonsils absent. No drooling, no hoarseness, no trismus, uvula midline. No tripod positioning, hot potato voice, or soft palate swelling. NECK: Supple. No lymphadenopathy CHEST: Clear to auscultation, breath sounds equal. No respiratory distress, speaks in full sentences. HEART: Regular rate and rhythm. No murmur heard. SKIN: Warm, dry, no rash. NEURO: Alert and oriented x3. Course Course Emergency Course: Patient is aware of diagnosis, understands and agrees to treatment plan. Anticipatory guidance given. Patient agrees to follow-up as directed and is aware of reasons to seek care at the emergency department. Portions of this record may have been created with voice recognition software Level of Care: Express Care Visit Vital Signs Vital signs: Vital Signs Temperature 97.5 F L 08/03/23 09:04 Pulse Rate 81 08/03/23 09:04 Respiratory Rate 18 08/03/23 09:04 Blood Pressure 114/68 08/03/23 09:04 Pulse Oximetry 100 08/03/23 09:04 Oxygen Delivery Room Air 0
== END 2023-08-03 09:44 | disposition home or self-care (01) ==
PROVIDERS: Emergency Provider Nurse Practitioner Family; PCP Family Medicine
DX: B34.9 Viral infection, unspecified (principal); Z87.891 Personal history of nicotine dependence; E03.9 Hypothyroidism, unspecified; D64.9 Anemia, unspecified
CPT/HCPCS: 87081; 87880; 99213; G0463

== ENCOUNTER → 2024-01-23 12:24 | Outpatient (CLI) | payer BC, SELFPAY ==
--- NOTE | ~2024-01-23 | MM_ITS ---
EXAMINATION: MM scrn angelica implant BI w denzel HISTORY: Screening mammogram TECHNIQUE: Craniocaudal and mediolateral oblique 3-D tomosynthesis images with implant displacement a nd synthetic 2-D images were generated. Craniocaudal and mediolateral oblique views of the breasts wi thout implant displacement were obtained using full field digital mammography. CAD analysis was submi tted and interpreted. COMPARISON: No prior mammogram is available for comparison at this institution. BREAST PARENCHYMAL COMPOSITION: There are scattered areas of fibroglandular density. FINDINGS: There is no evidence of suspicious mass, calcification, or architectural distortion to sugg est malignancy in either breast. There has been no suspicious interval change. IMPRESSION: 1. No mammographic evidence of malignancy. 2. Recommend routine screening mammography in one year. BI-RADS Category 1: Negative Reviewed, dictated and finalized at location A. ET RESEARCHER
== END ==
PROVIDERS: PCP Family Medicine; Visit Provider Obstetrics & Gynecology
DX: Z12.31 Encounter for screening mammogram for malignant neoplasm of breast (principal)
CPT/HCPCS: 77063; 77067

== ENCOUNTER 2024-03-10 22:12 | Emergency (ER) | payer BC, SELFPAY ==
--- NOTE | ~2024-03-10 | XR_ITS ---
Clinical Indication: Chest pain AP and lateral views of the chest: Comparison: None Findings: The lungs are clear, without evidence of focal consolidation or pleural effusion. Cardiome diastinal silhouette is within normal limits. Bones and soft tissues are unremarkable. Impression: Normal chest. Reviewed, dictated and finalized at location . Impression: Normal chest.
--- NOTE | ~2024-03-10 | CT_ITS ---
Clinical Indication: Chest pain CT Scan of the Chest with Contrast: Technique: Contiguous sections were acquired throughout the chest after intravenous administration of 100 cc of Omnipaque 350. Dose reduction technique was used on this scan by utilizing automated expos ure control and iterative reconstruction technique. The dose-length product (DLP) was 302.61 mGy-cm. Findings: There is no evidence of any significant mediastinal, hilar or axillary lymphadenopathy. There is no f illing defect in the pulmonary arterial tree to suggest pulmonary embolus. There is no evidence of ao rtic dissection or aneurysm. There is no evidence of pleural or pericardial effusion. The lungs are clear. No pulmonary nodules or infiltrates are noted. Images through the upper abdomen reveal no abnormalities. Impression: No evidence of pulmonary embolus, aortic dissection, or aortic aneurysm. Clear lungs. Reviewed, dictated and finalized at [facility]. Impression: No evidence of pulmonary embolus, aortic dissection, or aortic aneurysm. Clear lungs.
--- NOTE | 2024-03-10 22:13 | ECG_ITS ---
SEE SCANNED COPY FOR CONFIRMED REPORT MTDD
[2024-03-10 22:15] VITALS: BP 172/84; PULSE 120; RESP 20; TEMP 36.6; O2SAT 100
--- NOTE | 2024-03-10 22:36 | ED.CHESTPAIN ---
HPI - Chest Pain General Chief Complaint: Chest Pain Stated Complaint: High HR, cp Time Seen by Provider: 03/10/24 22:17 Source: patient Mode of arrival: ambulatory Limitations: no limitations History of Present Illness HPI narrative: 38-year-old female presenting for tachycardia, chest tightness, had last 2 hours. Showing and relaxing when she started feeling like she was getting dizzy and had to sit down a few times. The dizziness happened when she was standing up. Occasionally has been feeling like it chest is little bit typing no shortness of breath. No history of this. Denies any drug use. Denies any history of anxiety. Related Data Home Medications Medication Instructions Recorded Confirmed L.acidophil-L.casei-B.bifid-B.longum-FOS 1 cap PO DAILY 09/02/20 08/03/23 2 billion cell-50 mg capsule (Probiotic Blend) levothyroxine 50 mcg tablet 50 mcg PO DAILY 09/02/20 08/03/23 multivitamin 1 tablet PO DAILY 09/02/20 08/03/23 cholecalciferol (vitamin D3) 25 25 mcg PO DAILY 12/08/21 08/03/23 mcg (1,000 unit) capsule (Vitamin D3) ferrous sulfate 325 mg (65 mg 325 mg PO DAILY 12/08/21 08/03/23 iron) tablet (iron) diclofenac sodium 50 mg 50 mg PO DAILY 08/03/23 08/03/23 tablet,delayed release pantoprazole 20 mg tablet,delayed 20 mg PO DAILY 08/03/23 08/03/23 release Allergies Allergy/AdvReac Type Severity Reaction Status Date / Time No Known Allergies Allergy Verified 08/03/23 09:26 Review of Systems Review of Systems: All systems reviewed & are unremarkable except as noted in HPI and below PMFSH Past Medical History Medical History Anemia Hypothyroid Migraine Overweight Surgical History Surgical History H/O breast augmentation History of hysterectomy Hx of tonsillectomy S/P wisdom tooth extraction Social History Social History Smoking packs per day: 0.5 Smoking cigarettes per day: 10.0 Years smoked: 12 Smoking pack-years: 6.00 Smoking status: Former smoker Tobacco type: cigarettes Smoking end date: 10/27/08 Additional smoking assessment comments: 1ppd cigarettes x 12years Alcohol intake: current Alcohol use details: RARELY Substance use: never Last use: 2007 Living arrangements: with family Spiritual care concerns: No Exam Narrative: Constitutional: Generally well appearing, no acute distress Head: Atraumatic, no deformities. Eyes: Pupils equal, round, and reactive to light. Neck: Supple, no tracheal deviation, no JVD. ENMT: Mucous membranes moist Cardiovascular: Tachycardic 120 in triage. Heart rate 90 on my exam. S1, S2 auscultated. No murmurs, rubs, or gallops. No S3/S4. Normal Distal pulses. No peripheral edema. Respiratory: Lung sounds equal. No wheezes, rales, or rhonchi. Gastrointestinal: Abdomen was soft and non-tender. Non-distended. No rebound or guarding. Genitourinary: Deferred Musculoskeletal: Normal muscle tone and bulk. No obvious deformities or tenderness over extremities. Skin: No rashes. Neurological: Strength 5/5 in extremities. Cranial nerves I-XII grossly intact. Distal sensation intact. Mental Status: Awake, alert and oriented x3. Follows commands Course Vital Signs Vital signs: Vital Signs Temperature 36.6 C 03/10/24 22:15 Pulse Rate 120 H 03/10/24 22:15 Respiratory Rate 20 03/10/24 22:15 Blood Pressure 172/84 H 03/10/24 22:15 Pulse Oximetry 100 03/10/24 22:15 Oxygen Delivery Room Air 03/10/24 22:15 Temperature 36.6 C 03/10/24 22:15 Pulse Rate 98 03/11/24 01:51 Respiratory Rate 18 03/11/24 01:51 Blood Pressure 120/94 H 03/11/24 01:51 Pulse Oximetry 100 03/11/24 01:51 Oxygen Delivery Room Air 03/10/24 23:41 MDM - Chest Pain MDM Narrative Medical decision making narrative: 38-year-old fema
[2024-03-10] MEDS: ASPIRIN 81 MG CHEWABLE TABLET 324 MG PO (22:39)
[2024-03-10] MEDS: SODIUM CHLORIDE 0.9% IV 1,000 ML 999 ML IV CONT (22:40)
[2024-03-10 22:56] LABS: Basophils Absolute Auto 0.1 K/mm3 (0.0-0.1); Basophils Percent Auto 0.5 % (0.2-1.2); Eosinophils Percent Auto 0.3 % (0-4.4); Hematocrit 41.1 % (37.0-47.0); Hemoglobin 13.8 g/dL (12.0-15.0); Immature Granulocyte Absolute 0.04 K/mm3 (0.00-0.031); Immature Granulocyte Percent A 0.4 % (0-0.5); Lymphocytes Absolute Auto 1.46 K/mm3 (0.9-3.2); Lymphocytes Percent Auto 15.4 % (18.3-44.2); Mean Corpuscular HGB Conc 33.6 g/dl (32-36); Mean Corpuscular Hemoglobin 30.7 pg (26-34); Mean Corpuscular Volume 91.5 fl (80-100); Mean Platelet Volume 10.8 fl (7.4-10.4); Monocytes Absolute Auto 0.5 K/mm3 (0.1-0.6); Monocytes Percent Auto 5.1 % (2.6-8.5); Neutrophils Absolute Auto 7.4 K/mm3 (1.3-6.7); Neutrophils Percent Auto 78.3 % (45.5-73.1); Platelet Count Result 299 k/mm3 (150-375); Red Blood Count 4.49 M/mm3 (4.2-5.4); Red Cell Distribution Width 12.7 % (11.5-14.5); White Blood Count 9.5 K/mm3 (4.5-10.0)
[2024-03-10 23:12] LABS: Alanine Aminotransferase 18 U/L (6-35); Albumin Level 5.2 g/dL (3.5-5.1); Alkaline Phosphatase 75 U/L (38-126); Anion Gap 12 mmol/L (4-12); Aspartate Amino Transferase 23 U/L (14-36); Bilirubin,Total 0.5 mg/dL (0.2-1.3); Blood Urea Nitrogen 9 mg/dL (7-17); Calcium 9.9 mg/dL (8.4-10.2); Carbon Dioxide 22 mmol/L (22-30); Chloride 103 mmol/L (98-107); Estimated CRCL calculation 97 ml/min; Estimated Glomerular Filt Rate > 60; Glucose 100 mg/dL (65-110); Lipase 145 U/L (23-300); Potassium 3.1 mmol/L (3.4-5.0); Sodium 137 mmol/L (137-145)
[2024-03-10 23:15] LABS: D Dimer 0.58 ug/mL (<0.48)
[2024-03-10 23:16] LABS: INR 0.9; Prothrombin Time 12.4 Seconds (11.1-14.7)
[2024-03-10 23:17] LABS: Partial Thromboplastin Time 27.9 Seconds (22.3-36.8)
[2024-03-10] MEDS: POTASSIUM CHLORIDE 20 MEQ ER TABLET 40 MEQ PO (23:21)
[2024-03-10 23:23] LABS: Troponin I < 0.012 ng/mL (0.000-0.034)
[2024-03-10 23:32] VITALS: BP 121/94; PULSE 87; RESP 20; O2SAT 100
[2024-03-10 23:41] VITALS: O2SAT 98
[2024-03-10 23:42] VITALS: PULSE 96
[2024-03-11] VITALS: PULSE 77; RESP 14; O2SAT 100
[2024-03-11 01:51] VITALS: BP 120/94; PULSE 98; RESP 18; O2SAT 100
[2024-03-11 02:19] LABS: Troponin I < 0.012 ng/mL (0.000-0.034)
== END 2024-03-11 02:41 | disposition home or self-care (01) ==
PROVIDERS: Emergency Provider Emergency Medicine; PCP Family Medicine
DX: R07.89 Other chest pain (principal); R42 Dizziness and giddiness; E03.9 Hypothyroidism, unspecified; E66.3 Overweight; Z68.29 Body mass index [BMI] 29.0-29.9, adult; Z90.710 Acquired absence of both cervix and uterus; Z86.2 Personal history of diseases of the blood and blood-forming organs and certain disorders involving the immune mechanism; Z87.891 Personal history of nicotine dependence
CPT/HCPCS: 36415; 71046; 71275; 80053; 83690; 84484; 85025; 85380; 85610; 85730; 93005; 96360; 99284; A9270; J7030; Q9967

== ENCOUNTER 2024-08-27 09:39 | Emergency (ER) | payer BC, SELFPAY ==
[2024-08-27 09:53] VITALS: BP 138/80; PULSE 100; RESP 16; TEMP 36.6; O2SAT 100
--- NOTE | 2024-08-27 10:18 | ED.GENADULT ---
HPI - General Adult General Chief complaint: Abdominal Pain Stated complaint: Lower Back Pain , lower abdominal pain Source: patient and RN notes reviewed Mode of arrival: ambulatory Limitations: no limitations History of Present Illness HPI narrative: 38-year-old female presented for complaint of intermittent low back and low abdominal pain for 1 month. Also endorses intermittent burning with urination, urgency and frequency, along with vaginal itching, odor, and discharge described as thick and white. Denies hematuria, nausea, vomiting, constipation, diarrhea, fevers or chills. Endorses new sexual partner and has a history of BV. Taking excedrin for pains. History of hysterectomy. Related Data Home Medications Medication Instructions Recorded Confirmed L.acidophil-L.casei-B.bifid-B.longum-FOS 1 cap PO DAILY 09/02/20 08/27/24 2 billion cell-50 mg capsule (Probiotic Blend) levothyroxine 50 mcg tablet 50 mcg PO DAILY 09/02/20 08/27/24 multivitamin 1 tablet PO DAILY 09/02/20 08/27/24 cholecalciferol (vitamin D3) 25 25 mcg PO DAILY 12/08/21 08/27/24 mcg (1,000 unit) capsule (Vitamin D3) ferrous sulfate 325 mg (65 mg 325 mg PO DAILY 12/08/21 08/27/24 iron) tablet (iron) diclofenac sodium 50 mg 50 mg PO DAILY 08/03/23 08/03/23 tablet,delayed release pantoprazole 20 mg tablet,delayed 20 mg PO DAILY 08/03/23 08/27/24 release Allergies Allergy/AdvReac Type Severity Reaction Status Date / Time No Known Allergies Allergy Verified 08/03/23 09:26 Review of Systems Review of Systems: CONSTITUTIONAL: Denies body aches, fever, chills, or sweats. CARDIOVASCULAR: Denies chest pain, palpitations, or edema. RESPIRATORY: Denies cough or dyspnea. GASTROINTESTINAL: Denies abdominal pain, nausea, vomiting, or diarrhea. GENITOURINARY: Reports dysuria, frequency, urgency, flank pain SKIN: Denies rash, itching, or wounds. MUSCULOSKELETAL: Denies myalgia. [facility] Past Medical History Medical History Anemia Hypothyroid Migraine Overweight Surgical History Surgical History H/O breast augmentation History of hysterectomy Hx of tonsillectomy S/P wisdom tooth extraction Social History Social History Smoking packs per day: 0.5 Smoking cigarettes per day: 10.0 Years smoked: 12 Smoking pack-years: 6.00 Smoking status: Former smoker Tobacco type: cigarettes Smoking end date: 10/27/08 Additional smoking assessment comments: 1ppd cigarettes x 12years Alcohol intake: current Alcohol use details: RARELY Substance use: never Last use: 2007 Living arrangements: with family Spiritual care concerns: No Comments At time of signature, I have reviewed and agree with nursing past medical, surgical, social and family history unless otherwise noted. Please see nursing chart for further information. There is no relevant family history pertinent to the presenting complaint Exam Narrative: GENERAL: Well-appearing ENT: Mucous membranes pink and moist. NECK: Normal AROM. Supple. CHEST: No respiratory distress. Clear to auscultation. HEART: Regular rate and rhythm. ABDOMEN: Soft, nontender, nondistended, normal active bowel sounds. No CVA tenderness : Vagina: normal vaginal introitus, pink without discharge/bleeding, foreign body, laceration or lesions. No swelling. Nontender. hx hysterectomy. Chaperoned by Rosalee MARTINEZ SKIN: Warm, dry, no rash. NEURO: No focal deficits. Alert and oriented x3. Gait steady. PSYCH: Normal affect. Back/Spine/Pelvis: Back/spine/pelvis image: 1. Location of pain reported Course Course Emergency Course: Patient is aware of diagnosis, understands and agrees to treatment plan. Anticipatory guidance given. Patient agrees to follow-up as directed and is aware of reasons to seek
[2024-08-27 10:29] LABS: EDUAAPPEAR Clear; EDUABILI Negative (Negative); EDUABLOOD 1+ (Negative); EDUACOLOR1 Yellow; EDUAGLUCOSE Negative (Negative); EDUAKETONE Negative (Negative); EDUALEUKO Negative (Negative); EDUANITRATE Negative (Negative); EDUAPROTEIN Negative (Negative); EDUASPGRAVITY 1.015; EDUAUROBILI 0.2
[2024-08-27 21:48] LABS: Trichomonas Vag PCR NOT DETECTED (NOT DETECTE)
[2024-08-27 22:12] LABS: Chlamydia trachomatis NOT DETECTED (NOT DETECTE); Neisseria gonorrhoeae PCR NOT DETECTED (NOT DETECTE)
[2024-08-28 16:19] LABS: Bacterial Vaginosis POSITIVE (NEGATIVE)
== END 2024-08-27 10:45 | disposition home or self-care (01) ==
PROVIDERS: Emergency Provider Nurse Practitioner Family
DX: R30.0 Dysuria (principal); Z87.891 Personal history of nicotine dependence; E03.9 Hypothyroidism, unspecified; D64.9 Anemia, unspecified
CPT/HCPCS: 81003; 81513; 87070; 87086; 87491; 87591; 87661; 99214; G0463

== ENCOUNTER 2025-01-27 07:42 | Outpatient (CLI) | payer BC, SELFPAY | END 2025-01-27 07:43 | disposition home or self-care (01) | LOC: MICIMG 07:43 | PROVIDERS: PCP Family Medicine; Visit Provider Family Medicine | DX: Z12.31 Encounter for screening mammogram for malignant neoplasm of breast (principal); Z98.82 Breast implant status; R92.8 Other abnormal and inconclusive findings on diagnostic imaging of breast | CPT/HCPCS: 77063; 77067 ==